=== PATIENT | male | born 1965 | race Caucasian/White ===

== ENCOUNTER 2018-03-14 08:44 | Outpatient (CLI) | payer BC ==
[2018-03-14 09:17] LABS: HEMATOCRIT 44.1 % (39.0-53.0); HEMOGLOBIN 15.4 g/dL (13.0-17.5); MEAN CORPUSCULAR HEMOGLOBIN 28 pg (25-35); MEAN CORPUSCULAR HGB CONC 35 g/dL (31-37); MEAN CORPUSCULAR VOLUME 81 fL (79-100); PLATELET COUNT 238 x10^3/uL (140-400); RED BLOOD COUNT 5.42 x10^6/uL (4.30-5.70); RED CELL DISTRIBUTION WIDTH 14.3 % (11.5-14.5); WHITE BLOOD COUNT 7.8 x10^3/uL (4.0-11.0)
[2018-03-14 09:27] LABS: PROTHROMBIN TIME PATIENT 13.1 SEC (11.7-14.0)
[2018-03-14 09:32] LABS: ANION GAP 7 (6-14); BLOOD UREA NITROGEN 13 mg/dL (8-26); CALCIUM 9.4 mg/dL (8.5-10.1); CARBON DIOXIDE 29 mmol/L (21-32); CHLORIDE 101 mmol/L (98-107); CREATININE 1.3 mg/dL (0.7-1.3); GFR 57.5; GLUCOSE 96 mg/dL (70-99); POTASSIUM 4.1 mmol/L (3.5-5.1); SODIUM 137 mmol/L (136-145)
[2018-03-14] MEDS ORDERED: IODIXANOL 320 MG/ML 100 ML VIAL. (10:17)
[2018-03-14] MEDS ORDERED: LIDOCAINE 2% 20 ML VIAL. (10:17)
[2018-03-14] MEDS ORDERED: MIDAZOLAM HCL/PF 5 MG/5 ML VIAL. (10:23)
[2018-03-14] MEDS ORDERED: VERAPAMIL 5 MG/2 ML VIAL. (10:23)
[2018-03-14] MEDS ORDERED: fentaNYL PF VIAL 100 MCG/2 ML VIAL (10:23)
[2018-03-14] MEDS ORDERED: HEPARIN for IV BOLUS 10,000 UNIT/10 ML VIAL. (10:23)
[2018-03-14] MEDS ORDERED: NITROGLYCERIN 200 MCG/2 ML SYRINGE FOR CATH/VASC LAB. (10:24)
[2018-03-14] MEDS: MIDAZOLAM HCL/PF 5 MG/5 ML VIAL. IV (11:18)
[2018-03-14] MEDS: IODIXANOL 320 MG/ML 100 ML VIAL. IART (11:18)
[2018-03-14] MEDS: LIDOCAINE 2% 20 ML VIAL. IJ (11:18)
[2018-03-14] MEDS: fentaNYL PF VIAL 100 MCG/2 ML VIAL IV (11:19)
[2018-03-14] MEDS: NITROGLYCERIN 200 MCG/2 ML SYRINGE FOR CATH/VASC LAB. IART (11:19)
[2018-03-14] MEDS: VERAPAMIL 5 MG/2 ML VIAL. IART (11:20)
[2018-03-14] MEDS: HEPARIN for IV BOLUS 10,000 UNIT/10 ML VIAL. IV (11:20)
[2018-03-14] MEDS: HEPARIN for IV BOLUS 10,000 UNIT/10 ML VIAL. IART (11:23)
== END 2018-03-14 13:48 | disposition home or self-care (01) ==
LOC: CCL 08:44
DX: I25.10 Atherosclerotic heart disease of native coronary artery without angina pectoris (principal); E78.00 Pure hypercholesterolemia, unspecified; I10 Essential (primary) hypertension; J44.9 Chronic obstructive pulmonary disease, unspecified; E66.9 Obesity, unspecified; Z68.34 Body mass index [BMI] 34.0-34.9, adult; K21.9 Gastro-esophageal reflux disease without esophagitis; Z98.52 Vasectomy status; M81.0 Age-related osteoporosis without current pathological fracture; F41.9 Anxiety disorder, unspecified; Z87.891 Personal history of nicotine dependence
CPT/HCPCS: 36415; 80048; 85027; 85610; 93458; 99152; 99153; C1769; C1892; J1644; J2250; J3010; J3490

== ENCOUNTER → 2018-03-25 | Outpatient (CLI) | payer BC | END | disposition home or self-care (01) | LOC: KCIC MRI 13:19 | DX: M48.02 Spinal stenosis, cervical region (principal); M25.78 Osteophyte, vertebrae | CPT/HCPCS: 72141 ==